=== PATIENT | female | born 1955 | race Caucasian/White ===

== ENCOUNTER 2022-08-28 15:03 | Emergency (ER) | payer OTHER ==
[~2022-08-28] VITALS: Ht 167.6 cm; Wt 90.7 kg
[2022-08-28] MEDS ORDERED: COZAAR100 MG PO (16:01)
[2022-08-28] MEDS ORDERED: GLUMETZA500 MG PO (16:02)
[2022-08-28] MEDS ORDERED: AMLODIPINE-OLM1 EAC2 PO (16:02)
== END 2022-08-28 19:38 | disposition home or self-care (01) ==
LOC: ER 15:03
DX: L03.115 Cellulitis of right lower limb (principal); I10 Essential (primary) hypertension; E11.9 Type 2 diabetes mellitus without complications; Z79.84 Long term (current) use of oral hypoglycemic drugs; Z88.6 Allergy status to analgesic agent; Z88.0 Allergy status to penicillin